=== PATIENT | female | born 1995 | race Caucasian/White ===

== ENCOUNTER → 2021-01-31 15:20 | Outpatient (CLI) | payer SELFPAY ==
[2017-10-21 17:13] VITALS: BMI 34.9
[2021-01-31 17:09] LABS: hCG Titer Quant., Serum 11 mIU/mL (1-3)
== END ==
PROVIDERS: Visit Provider Student in an Organized Health Care Education/Training Program
DX: O20.0 Threatened abortion (principal)
CPT/HCPCS: 36415; 84702

== ENCOUNTER → 2021-02-02 11:30 | Outpatient (CLI) | payer SELFPAY ==
[2017-10-21 17:13] VITALS: BMI 34.9
[2021-02-02 15:13] LABS: hCG Titer Quant., Serum 5 mIU/mL (1-3)
== END ==
PROVIDERS: Visit Provider Student in an Organized Health Care Education/Training Program
DX: O20.0 Threatened abortion (principal)
CPT/HCPCS: 36415; 84702

== ENCOUNTER → 2021-04-21 | Outpatient (CLI) | payer SELFPAY ==
[2017-10-21 17:13] VITALS: BMI 34.9
[2021-04-25 03:06] LABS: Chlamydia By Nucleic Acid AMP Negative (Negative)
[2021-04-25 15:57] LABS: Gonococcus By Nucleic Acid AMP Negative (Negative)
[2021-04-27 15:27] LABS: HPV Reflexed? NOT INDICATED
== END | disposition home or self-care (01) ==
LOC: LABSPEC 16:06
PROVIDERS: Visit Provider Student in an Organized Health Care Education/Training Program
DX: Z12.4 Encounter for screening for malignant neoplasm of cervix (principal); Z11.3 Encounter for screening for infections with a predominantly sexual mode of transmission
CPT/HCPCS: 87491; 87591; 88175; G0145

== ENCOUNTER 2021-05-02 10:21 | Day surgery (SDC) | payer SELFPAY ==
[2021-05-02] VITALS (7 sets, daily range): BP systolic 105–127; BP diastolic 62–77; PULSE 76–97; RESP 14–18; TEMP 36.3–36.5; O2SAT 97–100; BMI 26.1
[2021-05-02 11:13] LABS: Hematocrit 39.1 % (37-47); Hemoglobin 13.1 g/dL (12.0-15.0); Mean Corp Hgb Conc 33.5 g/dL (32-36); Mean Corpuscular Hgb 29.6 pg (27.0-32.0); Mean Corpuscular Volume 88.3 fL (81-99); Mean Platelet Vol. 11.5 fl (6.2-12.0); Platelet Count 148 K/mm3 (150-450); RBC Distribution Width CV 11.5 % (11.6-14.6); RBC Distribution Width SD 37.1 fl (35.1-43.9); Red Blood Count 4.43 M/mm3 (4.2-5.4)
[2021-05-02] MEDS: Lactated Ringers 1,000 ML 100 ML IV (11:17)
--- NOTE | 2021-05-02 12:07 | PCM.HP.OB ---
HPI - General HPI Narrative 25-year-old G3, P1 presenting for suction dilation and curettage due to missed . Patient was seen in office yesterday for ultrasound. Ultrasound findings noted conjoined twins at either the chest or abdomen measuring 9 weeks, embryo a 21 mm and B 23 mm crown-rump length. Patient elected for surgical management of miscarriage. Denies: Headache, vision changes, chest pain, dyspnea, diarrhea, fevers or chills. Reports nausea. PFSH PFSH no medical history Home Medications Vitamins 1 cap PO DAILY 10/15/17 [History Last Taken 10/20/17 20:00 1] docusate sodium [Colace] 100 mg PO BID PRN PRN #30 capsule 10/21/17 [Rx Last Taken Unknown] Allergy/AdvReac Type Severity Reaction Status Date / Time shellfish derived AdvReac Vomiting Verified 05/01/21 15:37 no significant family history Surgical History (Updated 05/02/21 @ 12:[address] Alejandrina Hodges DO) Delivery by section Hx of section Social History Smoking Status: Never smoker History 3 Elective abortions Hx Para 1 Spontaneous abortions 2 Hx # Term Pregnancies Ectopic pregnancies Hx # Pregnancies Multiple births # of living children ROS Constitutional Constitutional: Reports systems reviewed and no addt'l complaints, except as documented Eyes Eyes: Reports systems reviewed and no addt'l complaints, except as documented ENT HEENT: Reports systems reviewed and no addt'l complaints, except as documented Cardiovascular Cardiovascular: Reports systems reviewed and no addt'l complaints, except as documented Respiratory/Chest Respiratory/Chest: Reports systems reviewed and no addt'l complaints, except as documented Gastrointestinal Gastrointestinal: Reports systems reviewed and no addt'l complaints, except as documented Genitourinary Genitourinary: Reports systems reviewed and no addt'l complaints, except as documented Musculoskeletal Musculoskeletal: Reports systems reviewed and no addt'l complaints, except as documented Integumentary Integumentary: Reports systems reviewed and no addt'l complaints, except as documented Neurologic Neurologic: Reports systems reviewed and no addt'l complaints, except as documented Psychiatric Psychiatric: Reports systems reviewed and no addt'l complaints, except as documented Endocrine Endocrinology: Reports systems reviewed and no addt'l complaints, except as documented Hematologic/Lymphatic Hematologic/Lymphatic: Reports systems reviewed and no addt'l complaints, except as documented Allergic/Immunologic Allergic/Immunologic: Reports systems reviewed and no addt'l complaints, except as documented Vital Signs Vital Signs Vital Signs: 05/02/21 11:19 Temperature 97.5 F L Temperature Source Temporal Pulse Rate 97 Respiratory Rate 14 Respiratory Pattern Normal Blood Pressure 127/77 H Blood Pressure Mean 93 Blood Pressure Source Monitor Blood Pressure Position Semi-Fowlers Pulse Ox 100 Oxygen Delivery Method Room Air Weight Weight: 69.1 kg Body Mass Index (BMI) 26.1 Physical Exam Const alert, oriented x3 and no apparent distress HEENT normocephalic Head and Scalp: atraumatic Neck full ROM Resp normal respiratory effort and clear to auscultation bilaterally Cardio regular rate and regular rhythm GI normal to inspection, nondistended, normoactive bowel sounds Extremity normal to inspection and no pedal edema Skin no rashes or lesions noted Neuro no focal motor deficits and no sensory deficits noted Psych mental status grossly normal and affect normal Labs Labs Labs: Blood Type A NEGATIVE Antibody Screen NEGATIVE Hct 39.1 % (37-47) Hgb 13.1 g/dL (12.0-15.0) Rubella IgG Antibody 83.9 IU/mL Hep Bs Antigen Negative (Negative) Neisseria gonorrhoeae DNA (MARNIE) Negative (Negative) C.trachomatis DNA (PCR) Negative (Negative) Glucose 1 Hr 50 gm 122 mg/dL (70-140) Group B Strep DNA Negative (Negative) Rhogam given: Yes Assessment & Plan (1) Missed : PLAN: 25-year-old admitted for suction D&C for missed . 200 mg IV doxycycline preop. Declines any genetic or Anora testing. Routine orders. (2) Conjoined twins in first trimester:
--- NOTE | 2021-05-02 12:16 | PCM.DC ---
Discharge Instructions Diet Discharge Diet: No restrictions Activity Discharge Activity: Return to Normal Activity and May Shower May resume sexual activity in: 2 weeks Weight Bearing Status: Weight bearing as tolerated Dressing / Incision Call your doctor if your incision/area has: Continuous Slow Oozing Call your doctor if you observe: Fever of 101 or Higher, Inability to urinate, Using more than 1 pad per hour, Shortness of breath, Dizziness, Fainting spells and Chest pain Cleanse incision/area with: Soap & Water Follow Up Care Please Follow Up With: Alejandrina Hodges When: 2 weeks in office Test Results: Test results from this visit will be discussed in further detail at your follow-up appointment, if applicable. Discharge Plan Admission Primary Reason for Your Visit: Miscarriage Attending Provider: Alejandrina Hodges Primary Care Provider: Care Physician,Pippa Primary Discharge Orders/Prescriptions Prescriptions: No Action Vitamins 1 cap PO DAILY RF: 0 docusate sodium [DOK] 100 MG capsule 100 mg PO BID PRN PRN (Reason: Constipation) Qty: 30 RF: 0 Referrals / Follow Up: Care Physician,Pippa Primary [Primary Care Provider] - Disposition Disposition (needs filled in before D/C Order can be placed): Home, self care
--- NOTE | 2021-05-02 12:26 | PCM.OPRPT ---
Problems Associated Problem List Diagnoses (1) Conjoined twins in first trimester: (2) Missed : Report of Operation Date of Procedure: 05/02/21 Pre-Operative Diagnosis: Missed , conjoined twin Post-Operative Diagnosis: Missed , conjoined twin Surgery/Procedure Performed:: Suction dilation and curettage Description of Surgical Findings:: Normal-appearing external genitalia. No urethral products of conception. Type of Anesthesia: MAC Specimen's removed: Products of conception Estimated Blood Loss (mL): 200 cc Fluids Replaced: 800 cc Description of Procedure: Risks/benefits/alternatives discussed. Risks include but are not limited to: Risk of bleeding to the point of transfusion, infection, injury to surrounding tissue including bowel or bladder, VTE, ICU admission. Patient aware and consented. Procedure: Patient taken operating room placed under MAC anesthesia. Patient placed in the dorsal lithotomy position and prepped and draped in the usual sterile fashion. Bladder drained 75 cc clear urine. Weighted speculum placed in posterior vagina and an Allis clamp was used to grasp the anterior lip of the cervix. Cervix sequentially dilated. Suction curette utilized to evacuate uterus of products of conception in a 360 degree manner. Oozing noted from the cervix, 0.2 mg IM Methergine given. Hemostasis resolved with Methergine and bimanual massage. Allis clamp removed, hemostatic. Weighted speculum removed. At the end of the procedure all needle, lap, sponge counts were correct. Complications None.
--- NOTE | 2021-05-02 12:30 | POC_PTH ---
PATIENT: CARON ZAMORA LOC: [facility] [place] U#:[id number] AGE/SX: 25/F ROOM: RE05/02/[address]: Dr. Alejandrina Zamora DO : 1995 BED: DIS: 05/02/2021 SPEC #: [id number] RECD: 05/02/21 14:06 STATUS: ALANAGregory DIAZ #: [id number] NANCI: 05/02/21 12:[address]: Alejandrina Zamora DEPT: SURGICAL PATHOLOGY RECD BY: Sonia Akhtar ENTERED: 05/03/21 08:33 SP TYPE: PROD CONC OTHR DR: No Primary Care Phys Tissues: Product of conception, NOS Procedures: Surgery Specimen Level IV HEADER OPERATION: Suction dilation and curettage PRE-OP DIAGNOSIS: Missed TISSUE SUBMITTED: Products of conception MICROSCOPIC DIAGNOSIS Endometrium, curettage: Chorionic villi, decidualized stroma and trophoblastic cells consistent with products of conception. AM:lupe 05/04/2021 MICROSCOPIC DESCRIPTION Slides are reviewed. GROSS DESCRIPTION Received in fixative is one container labeled with the patient's name and designated products of conception. The specimen consists of multiple irregular and hemorrhagic fragments of pink-ortiz soft tissue that in aggregate measure 11 x 9 x 1 cm. parts are not grossly recognized. Junction Maker portions are submitted in one cassette. / AM:lupe 05/03/21 TC:5 CPT: 60282
[2021-05-02] MEDS: Methylergonovine 0.2 MG/ML Ampul IM (12:58)
[2021-05-02] MEDS: Acetaminophen 500 MG Tablet 1000 MG PO (14:09)
== END 2021-05-02 15:05 | disposition home or self-care (01) ==
LOC: SDC 10:28 → AC 10:29
PROVIDERS: Referring Provider Student in an Organized Health Care Education/Training Program; Visit Provider Student in an Organized Health Care Education/Training Program
PROC: (CPT 59820; principal; 2021-05-02 12:15)
DX: O02.1 Missed abortion (principal); O30.0 Twin pregnancy
CPT/HCPCS: 01965; 59820; 85027; 86850; 86900; 86901; 87426; 88305; J7120; J2405

== ENCOUNTER 2022-03-06 09:25 | Outpatient (CLI) | payer SELFPAY ==
[2022-03-06 10:18] LABS: Absolute Lymphocyte Count 1.73 X10^3/uL (0.83-4.51); Absolute Neutrophil Count 5.1 X10^3/uL (2.0-7.7); Basophil# 0.02 X10^3/uL; Basophil% 0.3 % (0-1); Eosinophil# 0.06 X10^3/uL; Eosinophils% 0.8 % (0-5); Hematocrit 38.7 % (37-47); Hemoglobin 12.9 g/dL (12.0-15.0); Lymphocyte # 1.73 X10^3/ul (0.83-4.51); Lymphocyte % 23.9 % (19-41); Mean Corp Hgb Conc 33.3 g/dL (32-36); Mean Corpuscular Hgb 30.1 pg (27.0-32.0); Mean Corpuscular Volume 90.2 fL (81-99); Mean Platelet Vol. 12.2 fl (6.2-12.0); Monocyte# 0.34 X10^3/uL; Monocyte% 4.7 % (0-10); NRBC Flagged by Analyzer 0 % (0-5); Neutrophil # 5.09 X10^3/uL (2.7-7.7); Neutrophil % 70.2 % (47-70); Platelet Count 169 K/mm3 (150-450); RBC Distribution Width CV 11.9 % (11.6-14.6); RBC Distribution Width SD 39.2 fl (35.1-43.9); Red Blood Count 4.29 M/mm3 (4.2-5.4); White Blood Count 7.3 K/mm3 (4.4-11.0)
[2022-03-06 11:09] LABS: HIV - WCH Non-Reactive (Nonreactive); Hepatitis B Surface Antigen Non-Reactive (Nonreactive); Hepatitis C Antibody Non-Reactive (Nonreactive); Rubella IgG Reactive (Nonreactive); Syphilis Antibodies Non-reactive
[2022-03-07 22:08] LABS: Chlamydia By Nucleic Acid AMP Negative (Negative)
[2022-03-07 22:14] LABS: Gonococcus By Nucleic Acid AMP Negative (Negative)
== END 2022-03-06 23:59 | disposition home or self-care (01) ==
LOC: WOBLAB 09:25
PROVIDERS: Visit Provider Student in an Organized Health Care Education/Training Program
DX: Z34.81 Encounter for supervision of other normal pregnancy, first trimester (principal)
CPT/HCPCS: 85025; 86703; 86762; 86780; 86803; 87086; 87088; 87340; 87491; 87591

== ENCOUNTER → 2022-07-11 | Outpatient (CLI) | payer SELFPAY ==
[2022-07-11 11:07] LABS: Absolute Neutrophil Count 6.4 X10^3/uL (2.0-7.7); Basophil# 0.01 X10^3/uL; Basophil% 0.1 % (0-1); Eosinophil# 0.13 X10^3/uL; Eosinophils% 1.5 % (0-5); Hematocrit 35.1 % (37-47); Hemoglobin 11.4 g/dL (12.0-15.0); Lymphocyte % 17.6 % (19-41); Mean Corp Hgb Conc 32.5 g/dL (32-36); Mean Corpuscular Hgb 30.5 pg (27.0-32.0); Mean Corpuscular Volume 93.9 fL (81-99); Mean Platelet Vol. 11.6 fl (6.2-12.0); Monocyte# 0.43 X10^3/uL; NRBC Flagged by Analyzer 0 % (0-5); Neutrophil # 6.41 X10^3/uL (2.7-7.7); Neutrophil % 75.3 % (47-70); Platelet Count 169 K/mm3 (150-450); RBC Distribution Width CV 11.9 % (11.6-14.6); Red Blood Count 3.74 M/mm3 (4.2-5.4); White Blood Count 8.5 K/mm3 (4.4-11.0)
[2022-07-11 11:15] LABS: Glucose Challenge Gest 1H 50g 68 mg/dL (70-140)
== END | disposition home or self-care (01) ==
LOC: WOBLAB 09:02
PROVIDERS: Visit Provider Student in an Organized Health Care Education/Training Program
DX: O26.92 Pregnancy related conditions, unspecified, second trimester (principal); Z3A.00 Weeks of gestation of pregnancy not specified
CPT/HCPCS: 36415; 82950; 85025

== ENCOUNTER → 2022-08-08 | Outpatient (CLI) | payer SELFPAY | END | disposition home or self-care (01) | LOC: WOBLAB 10:58 | PROVIDERS: Visit Provider Student in an Organized Health Care Education/Training Program | DX: Z34.83 Encounter for supervision of other normal pregnancy, third trimester (principal) | CPT/HCPCS: 36415; 86850 ==

== ENCOUNTER → 2022-10-05 | Outpatient (CLI) | payer OTHER, SELFPAY | END | disposition home or self-care (01) | LOC: LABSPEC 11:16 | PROVIDERS: Visit Provider Student in an Organized Health Care Education/Training Program | DX: Z36.85 Encounter for antenatal screening for Streptococcus B (principal) | CPT/HCPCS: 87081 ==

== ENCOUNTER 2022-10-25 07:00 | Inpatient (IN) | payer SELFPAY, OTHER ==
[2022-10-24 14:33] LABS: Hematocrit 38.5 % (37-47); Hemoglobin 13.1 g/dL (12.0-15.0); Mean Corpuscular Hgb 31.3 pg (27.0-32.0); Mean Corpuscular Volume 92.1 fL (81-99); Mean Platelet Vol. 11.1 fl (6.2-12.0); Platelet Count 160 K/mm3 (150-450); RBC Distribution Width CV 12.6 % (11.6-14.6); RBC Distribution Width SD 42.3 fl (35.1-43.9); Red Blood Count 4.18 M/mm3 (4.2-5.4); White Blood Count 10.1 K/mm3 (4.4-11.0)
[2022-10-25] VITALS (16 sets, daily range): BP systolic 96–129; BP diastolic 52–85; PULSE 80–105; RESP 16–18; TEMP 36.6–37.1; O2SAT 95–100; BMI 32.9
[2022-10-25 08:08] LABS: Absolute Lymphocyte Count 1.84 X10^3/uL (0.83-4.51); Absolute Neutrophil Count 7.3 X10^3/uL (2.0-7.7); Basophil# 0.01 X10^3/uL; Basophil% 0.1 % (0-1); Eosinophil# 0.05 X10^3/uL; Eosinophils% 0.5 % (0-5); Hematocrit 37.8 % (37-47); Hemoglobin 12.4 g/dL (12.0-15.0); Lymphocyte # 1.84 X10^3/ul (0.83-4.51); Lymphocyte % 18.9 % (19-41); Mean Corp Hgb Conc 32.8 g/dL (32-36); Mean Corpuscular Hgb 30.2 pg (27.0-32.0); Mean Platelet Vol. 11.7 fl (6.2-12.0); Monocyte# 0.51 X10^3/uL; Monocyte% 5.2 % (0-10); NRBC Flagged by Analyzer 0 % (0-5); Neutrophil # 7.28 X10^3/uL (2.7-7.7); Platelet Count 152 K/mm3 (150-450); RBC Distribution Width CV 12.5 % (11.6-14.6); RBC Distribution Width SD 41.6 fl (35.1-43.9); Red Blood Count 4.11 M/mm3 (4.2-5.4); White Blood Count 9.7 K/mm3 (4.4-11.0)
--- NOTE | 2022-10-25 08:46 | PCM.HP.BLA ---
History and Physical Date of Admission: 10/25/22 Chief complaint: Contractions History present illness: 27-year-old G4, P1 at 40 weeks and 2 days with ALLY 10/23/2022 arrives with contractions. Denies headache, visual changes, chest pain, shortness of breath, nausea vomit, right upper quadrant pain. Patient states good movement. is complicated by history of section Obstetric history: G1: Primary section at term G2: SAB G3: SAB G4: Current Past medical history: None Medications: vitamin Past surgical history: section Allergies: No known drug allergies Social history: Denies smoking, alcohol use, drug use Family history: Denies history DVT or PE Review of systems: Besides above pertinent positive for review of systems was performed and found to be negative Physical exam: Vitals: Blood pressure 129/85 General: Normal-appearing no acute distress HEENT: Normocephalic/atraumatic no cervical lymphadenopathy Cardiac/respiratory: No use accessory muscles, nonlabored breathing Abdomen: Soft, nontender, gravid Extremities: No peripheral edema normal peripheral pulses Psych: Normal affect normal demeanor nonpressured speech Labs: White blood cell count 9.7 hemoglobin 12.4 hematocrit 37.8% platelets 152 Assessment plan: 27-year-old G4, P1 at 40 weeks and 2 days arrives with contractions. 3 cm per nursing cervical exam. Patient was scheduled for repeat section. Discussed versus repeat section risk benefits alternatives. Patient also discussed with Dr. Alejandrina Hodges along with her . After speaking with patient desires for repeat section now. For 2 g Ancef and 500 mg of azithromycin. For section now. GBS negative
[2022-10-25] MEDS: Lactated Ringers 1,000 ML 50 ML IV (08:49)
[2022-10-25] MEDS: Acetaminophen 500 MG Tablet 1000 MG PO ×3 (08:50→21:34)
[2022-10-25] MEDS: Sodium Citrate/Citric Acid 30 ML UDC PO (08:50)
[2022-10-25] MEDS: Lactated Ringers 1,000 ML 999 ML IV (08:56)
[2022-10-25] MEDS: Cefazolin 2 GM in 0.9% Normal Saline 100 ML IV (09:08)
--- NOTE | 2022-10-25 10:01 | EX.PCM.OBRPT ---
Details Operative Information Date of Procedure: 10/25/22 Pre-Operative Diagnosis: Term, history of section, desires repeat section Post-Operative Diagnosis: Term, history of section, desires repeat section industrial staff nurse #1: Steve Wilcox Findings Description of Procedure: Procedure: Repeat low transverse section Via Pfannenstiel incision Surgeon: Rocky Hodges MD Anesthesia: Spinal EBL: 600 cc Urine output: 40 cc none IV fluids: 2000 cc Complications: None Specimen: None Findings: Male infant in vertex position Apgars 8/9. Normal uterus, tubes, and ovaries. Mild utero vesicular adhesions Consent: Patient in labor and elects for repeat low-transverse section Via Pfannenstiel incision. Patient understands risk of the procedure include but are not limited to visceral or vascular injury, prolonged hospitalization, blood loss need for transfusion, reoperation. Patient state understanding wish to proceed. All questions were answered and consent was signed. Procedure: Patient was brought back to the OR where spinal anesthesia was found to be adequate. 2 g of Ancef and 500 mg of azithromycin were given for infection prophylaxis. Patient was prepared and draped in a supine position with leftward tilt. A Pfannenstiel incision was made at the skin with a scalpel and the incision carried down to the fascia with a scalpel. The fascia was excised and extended laterally. Rectus muscle was dissected the midline down to the level of the pubic symphysis. Preperitoneal fatty tissue was noted peritoneum was entered bluntly. Peritoneum was extended superiorly and inferiorly with good visualization of bladder. Bladder blade was inserted and vesicouterine peritoneum was identified. Low transverse hysterotomy was made. Plate hand was placed into the incision and gentle fundal pressure was applied once the head was brought into the incision and the bladder blade was removed. Head and shoulders were delivered with ease. Cord was clamped and cut. Baby handed off to nursing. Placenta was delivered via cord traction and fundal massage. IV oxytocin was initiated in order to facilitate uterine contractions. Uterus was exteriorized and wiped out with dry laparotomy sponge in order to remove remaining placental membranes. Uterus was closed in a continuous running fashion. Good hemostasis was noted. Above findings were noted. Uterus was placed back in the abdominal cavity and the incision was reinspected, good hemostasis was noted. Fascia was closed in a continuous running fashion with PDS suture. Subcutaneous irrigation was performed and good hemostasis was noted. Skin was closed in a subcuticular fashion. Good hemostasis was noted. All counts were correct x2. Patient tolerated procedure well and was brought to recovery in stable condition.
[2022-10-25] MEDS: Oxytocin 15 Units/NS 250ml 15 UNITS/250 ML IV.SOLN 83 UNITS IV (10:30)
[2022-10-25] MEDS: Lactated Ringers 1,000 ML 100 ML IV (12:17)
[2022-10-25] MEDS: Ketorolac 30 MG/ML Syringe IV ×2 (13:22→19:04)
[2022-10-25] MEDS: DiphenhydrAMINE 25 MG Capsule PO (14:50)
[2022-10-25] MEDS: Enoxaparin 40 MG/0.4 ML Syringe SC (21:34)
[2022-10-26] MEDS: Ketorolac 30 MG/ML Syringe IV ×2 (00:46→06:52)
[2022-10-26] MEDS: 0.9% Saline Lock 10 ML Syringe IV ×2 (00:47→06:52)
[2022-10-26] MEDS: Acetaminophen 500 MG Tablet 1000 MG PO ×3 (03:27→15:17)
[2022-10-26 03:30] VITALS: BP 110/61; PULSE 95; RESP 16; TEMP 36.6; O2SAT 96
--- NOTE | 2022-10-26 06:15 | PN.OBGYN_ITS ---
Subjective Subjective No overnight complaints Objective Data Objective Data Vital Signs: Vital Signs Temp Pulse Resp BP Pulse Ox O2 Del Method 98 F 95 16 110/61 96 Room Air 10/26/22 03:30 10/26/22 03:30 10/26/22 03:30 10/26/22 03:30 10/26/22 03:30 10/26/22 03:30 Oxygen Delivery Method Room Air Weight: 204 lb Body Mass Index (BMI) 32.9 Intake & Output: Intake and Output for Last 24 Hours 10/24/22 10/25/22 10/26/22 23:59 23:59 23:59 Intake Total 3578.67 / 3578.67 Output Total 1800 / 1925 750 / 750 Balance 1778.67 / 1653.67 -750 / -750 Lab / Micro Data Result Diagrams: 10/25/22 07:50 Labs: Laboratory Results - last 24 hr 10/25/22 07:50: WBC 9.7, RBC 4.11 L, Hgb 12.4, Hct 37.8, MCV 92.0, MCH 30.2, MCHC 32.8, RDW Std Deviation 41.6, RDW Coeff of Aminah 12.5, Plt Count 152, MPV 11.7, Immature Gran % (Auto) 0.300, Neut % (Auto) 75.0 H, Lymph % (Auto) 18.9 L, [place] % (Auto) 5.2, Eos % (Auto) 0.5, Baso % (Auto) 0.1, Absolute Neuts (auto) 7.3, Absolute Lymphs (auto) 1.84, Nucleated RBC % 0 10/25/22 07:50: Blood Type A NEGATIVE, Antibody Screen NEGATIVE 10/25/22 11:40: Screen NEGATIVE, Baby's Blood Type O POSITIVE, Baby's UNIQUE NEGATIVE Physical Exam Const alert, oriented x3, no apparent distress, average body habitus, healthy appearing and well nourished HEENT normocephalic and moist oral mucous membranes Eyes PERRL Neck full ROM Resp normal respiratory effort, no retractions and no use of accessory muscles GI GI Narrative: Soft, nontender, bandage clean dry and intact Extremity normal to inspection, full ROM and no clubbing, cyanosis or edema Neuro moves all extremities and no focal motor deficits Psych mental status grossly normal, affect normal, speech normal and activity/motor behavior normal Assessment & Plan (1) delivery delivered: PLAN: Postop day 1 status post repeat section. Breast-feeding. Pain well controlled. Okay to discharge home today if okay with pigment supplier
--- NOTE | 2022-10-26 06:15 | DCINST_ITS ---
Discharge Instructions Diet Discharge Diet: No restrictions Activity Discharge Activity: Return to Normal Activity, May Drive, May Shower and - (No tub baths for 2 weeks) May resume sexual activity in: 4-6 weeks Lifting Restrictions: No lifting over 25 pounds for 2 to 3 weeks Dressing / Incision Call your doctor if your incision/area has: Continuous Slow Oozing and Foul Smelling Discharge Call your doctor if you observe: Fever of 101 or Higher, Shortness of breath and Chest pain Follow Up Care Please Follow Up With: Rocky Hodges MD When: 2 weeks postoperatively Test Results: Test results from this visit will be discussed in further detail at your follow- up appointment, if applicable. Discharge Plan Admission Admit Date/Time: 10/25/22 07:00 Primary Reason for Your Visit: Labor Attending Provider: Rocky Hodges Primary Care Provider: Care PhysicianPippa Primary Instructions Additional Instructions / Restrictions: Regular diet. Okay to shower. No tub baths for 2 weeks. No lifting over 25 pounds for 2 to 3 weeks. No intercourse for 4 to 6 weeks. Call if fevers, chills, chest pain, shortness of breath. Follow-up 2 weeks postoperatively Discharge Orders/Prescriptions Prescriptions: New oxycodone 5 mg tablet 5 mg PO Q6H PRN (Reason: pain (scale score 7-10)) 4 Days Qty: 16 0RF Continued Vitamins 1 cap PO DAILY docusate sodium [DOK] 100 MG capsule 100 mg PO BID PRN PRN (Reason: Constipation) Qty: 30 0RF Referrals / Follow Up: Care PhysicianPippa Primary [Primary Care Provider] - Disposition Discharge Orders: Discharge Patient (Routine); Ordered 10/26/22 Ordered By: Dr. Rocky Hodges
[2022-10-26 06:16] LABS: Hemoglobin 10.2 g/dL (12.0-15.0); Mean Corp Hgb Conc 32.9 g/dL (32-36); Mean Corpuscular Hgb 30.7 pg (27.0-32.0); Mean Corpuscular Volume 93.4 fL (81-99); Mean Platelet Vol. 11.3 fl (6.2-12.0); Platelet Count 116 K/mm3 (150-450); RBC Distribution Width CV 12.9 % (11.6-14.6); RBC Distribution Width SD 43.6 fl (35.1-43.9); Red Blood Count 3.32 M/mm3 (4.2-5.4); White Blood Count 7.9 K/mm3 (4.4-11.0)
[2022-10-26 09:50] VITALS: BP 120/67; PULSE 104; RESP 17; TEMP 36.3; O2SAT 98
[2022-10-26] MEDS: Enoxaparin 40 MG/0.4 ML Syringe SC (11:31)
[2022-10-26] MEDS: Senna/Docusate Sodium 1 Tablet PO (11:31)
[2022-10-26] MEDS: Ibuprofen 600 MG Tablet PO (13:48)
[2022-10-26 14:29] VITALS: BP 121/62; PULSE 94; RESP 17; TEMP 36.5
== END 2022-10-26 15:20 | disposition home or self-care (01) | DRG 788 ==
PROVIDERS: Student in an Organized Health Care Education/Training Program; Admitting Provider Obstetrics & Gynecology; Referring Provider Obstetrics & Gynecology; Visit Provider Obstetrics & Gynecology
PROC: (CPT 59514; principal; 2022-10-25 08:45)
DX: O34.211 Maternal care for low transverse scar from previous cesarean delivery (principal); O26.23 Pregnancy care for patient with recurrent pregnancy loss, third trimester; Z37.0 Single live birth; Z3A.40 40 weeks gestation of pregnancy
CPT/HCPCS: 36415; 59025; 59050; 85025; 85027; 85461; 86850; 86900; 86901; 99218; J7120; A4216; G0378; J2405; J2790

== ENCOUNTER → 2025-09-04 | Outpatient (CLI) | payer OTHER, SELFPAY ==
[2025-09-04 12:33] LABS: hCG Titer Quant., Serum 14347 mIU/mL (<9 non-preg)
== END | disposition home or self-care (01) ==
PROVIDERS: Referring Provider Advanced Practice Midwife; Visit Provider Advanced Practice Midwife
DX: O26.859 Spotting complicating pregnancy, unspecified trimester (principal); Z3A.00 Weeks of gestation of pregnancy not specified
CPT/HCPCS: 36415; 84702

== ENCOUNTER → 2025-09-06 | Outpatient (CLI) | payer OTHER, SELFPAY ==
[2025-09-06 13:10] LABS: hCG Titer Quant., Serum 5645 mIU/mL (<9 non-preg)
== END | disposition home or self-care (01) ==
PROVIDERS: Visit Provider Advanced Practice Midwife
DX: O26.859 Spotting complicating pregnancy, unspecified trimester (principal); Z3A.00 Weeks of gestation of pregnancy not specified
CPT/HCPCS: 36415; 84702